=== PATIENT | female | born 1950 | race Caucasian/White ===

== ENCOUNTER → 2017-05-21 | Outpatient (CLI) | payer OTHER ==
[~2017-05-21] MED LIST: BYSTOLIC10 MG PO; CRESTOR10 MG PO; CYCLOBENZAPRINE5 MG PO; DIOVAN320 MG PO; ELIQUIS2.5 MG PO; ENDOCET 5-3251 EACH PO; HYDROCHLOROTHIA25 MG PO; OMEPRAZOLE20 MG PO; SENNA PLUS TAB1 EACH PO; SPIRONOLACTONE25 MG PO; TYLENOL ARTHRI650 MG PO
== END | disposition home or self-care (01) ==
DX: M16.12 Unilateral primary osteoarthritis, left hip (principal); R26.2 Difficulty in walking, not elsewhere classified; M25.552 Pain in left hip; M25.652 Stiffness of left hip, not elsewhere classified; M62.81 Muscle weakness (generalized)
CPT/HCPCS: 97110 GP; 97150 GO; 97161 GP; 97165 GO; G8978 GP; G8979 GP; G8980 GP; G8987 GO; G8988 GO; G8989 GO

== ENCOUNTER → 2017-06-10 | Outpatient (CLI) | payer OTHER | END | disposition home or self-care (01) | LOC: CDC 08:44 | DX: R94.31 Abnormal electrocardiogram [ECG] [EKG] (principal) | CPT/HCPCS: 93000 ==

== ENCOUNTER 2017-06-16 22:11 | Inpatient (IN) | payer OTHER ==
[~2017-06-16] VITALS: Ht 154.9 cm; Wt 104.1 kg
[~2017-06-16 22:11] MED LIST changes: -ELIQUIS2.5 MG PO; -ENDOCET 5-3251 EACH PO; -SENNA PLUS TAB1 EACH PO
[2017-06-17 07:38] LABS: ALKALINE PHOSPHATASE 56 IU/L (3-129); ANION GAP 14 MEQ/L (2-14); CHLORIDE 112 MEQ/L (99-109); GFR ESTIMATE (CALCULATED) 59 mL/min/; GLUCOSE 99 mg/dL (70-99); POTASSIUM 4.3 MEQ/L (3.7-5.4); SAMPLE HEMOLYSIS CHECK 0; SAMPLE ICTERIC CHECK 0; SAMPLE LIPEMIA CHECK 0; SODIUM 144 MEQ/L (136-147); TOTAL BILIRUBIN 0.7 MG/DL (0.0-1.0); UREA NITROGEN (BUN) 21 mg/dL (9-23)
[2017-06-17 07:53] VITALS: BP 130/61
[2017-06-17 13:10] LABS: HEMATOCRIT 39.7 % (36.0-46.0); MCV 90.4 FL (83-99)
[2017-06-17 13:55] VITALS: BP 112/60
[2017-06-17 15:07] VITALS: BP 136/62
[2017-06-17 17:35] VITALS: BP 128/59
[2017-06-17 19:32] VITALS: BP 136/63
[2017-06-18 00:21] VITALS: BP 99/52
[2017-06-18 04:16] VITALS: BP 101/59
[2017-06-18 05:34] LABS: HEMATOCRIT 35.2 % (36.0-46.0); MCV 88.7 FL (83-99)
[2017-06-18 08:08] VITALS: BP 110/59
[2017-06-18 11:35] VITALS: BP 118/56
[2017-06-18 15:33] VITALS: BP 100/57
[2017-06-18 19:34] VITALS: BP 110/53
[2017-06-19 00:15] VITALS: BP 140/65
[2017-06-19 04:14] VITALS: BP 133/61
[2017-06-19 08:16] VITALS: BP 119/58
[2017-06-19 09:09] LABS: HEMATOCRIT 33.1 % (36.0-46.0); MCV 89.2 FL (83-99)
[2017-06-19 12:08] VITALS: BP 115/66
[2017-06-19 15:24] VITALS: BP 119/58
[2017-06-19 19:55] VITALS: BP 106/51
[2017-06-20 00:30] VITALS: BP 100/44
[2017-06-20 04:43] VITALS: BP 115/54
[2017-06-20 07:59] VITALS: BP 143/85
[2017-06-20] MEDS ORDERED: ENDOCET 5-3251 EACH PO (08:18)
[2017-06-20] MEDS ORDERED: SENNA PLUS TAB1 EACH PO (08:18)
[2017-06-20] MEDS ORDERED: ELIQUIS2.5 MG PO (08:18)
[2017-06-20 11:34] VITALS: BP 91/50
[2017-06-20 15:17] VITALS: BP 129/59
== END 2017-06-20 15:01 | DRG 470 ==
LOC: ENRESERV 22:11 → 2SOUTH 06-17 06:46 → 3WEST 06-17 06:46 → 2SOUTH 06-17 09:01 → 3WEST 06-17 13:40
PROVIDERS: Orthopaedic Surgery; Physician Assistant
PROC: 0SRB01Z Replacement of Left Hip Joint with Metal Synthetic Substitute, Open Approach (ICD-10-PCS; principal; 2017-06-17)
DX: M16.12 Unilateral primary osteoarthritis, left hip (principal); Z68.41 Body mass index [BMI] 40.0-44.9, adult; I10 Essential (primary) hypertension; K21.9 Gastro-esophageal reflux disease without esophagitis; Z90.49 Acquired absence of other specified parts of digestive tract; Z96.653 Presence of artificial knee joint, bilateral
CPT/HCPCS: 71010; 80053; 85014; 85018; J0131; J0330; J0690; J1100; J1170; J2250; J2405; J3010; J7050; J7120; S0020